=== PATIENT | male | born 1985 | race American Indian/Alaskan Native ===

== ENCOUNTER 2018-10-22 09:57 | Emergency (ER) | payer MEDICAID ==
[2018-10-22] MEDS ORDERED: ZOFRAN IV ONE (10:47)
[2018-10-22] MEDS ORDERED: BENTYL IM ONE (10:47)
[2018-10-22] MEDS ORDERED: PROTONIX IV ONE (10:47)
[2018-10-22] MEDS ORDERED: NACL 0.9% 1000 ML 1,000 ML IV ONE (10:47)
--- NOTE | 2018-10-22 10:52 | Emergency Department Report ---
ED N/V/D HPI - General Chief complaint: Nausea/Vomiting/Diarrhea Stated complaint: WEAK/DEHYDRATED Time Seen by Provider: 10/22/18 10:24 Source: patient Mode of arrival: Ambulatory Limitations: No Limitations - History of Present Illness Initial comments: Patient is a 33-year-old male presents to the emergency room with complaints of nausea, vomiting, diarrhea that began 3 days ago. He states he has associated abdominal cramping and spasms. he states it feels like a burning sensation. He states he has had these symptoms before and been seen in the emergency department for it and was diagnosed with acid reflux. He states he ran out of all of his bentyl and Protonix. He denies any urinary symptoms. He does not report any melena, hematochezia, hematemesis. He denies any allergies to medications. He endorses tobacco and marijuana use. - Related Data Previous Rx's Medication Instructions Recorded Last Taken Type Ondansetron [Zofran Odt] 4 mg PO Q8HR PRN #10 tab.rapdis 02/15/18 Unknown Rx Dicyclomine [Bentyl] 10 mg PO QID PRN #20 capsule 10/22/18 Unknown Rx Ondansetron [Zofran Odt] 4 mg PO Q8HR PRN #20 tab.rapdis 10/22/18 Unknown Rx Pantoprazole [Protonix TAB] 20 mg PO QDAY #20 tablet. 10/22/18 Unknown Rx Allergies Allergy/AdvReac Type Severity Reaction Status Date / Time No Known Allergies Allergy Unverified 02/15/18 02:22 ED Review of Systems ROS: Stated complaint: WEAK/DEHYDRATED Other details as noted in HPI Comment: All other systems reviewed and negative ED Past Medical Hx - Past Medical History Previous Medical History?: No Additional medical history: Stomach Ulcers. - Surgical History Past Surgical History?: No - Social History Smoking Status: Current Every Day Smoker Substance Use Type: Marijuana - Medications Home Medications: Home Medications Medication Instructions Recorded Confirmed Last Taken Type Ondansetron [Zofran Odt] 4 mg PO Q8HR PRN #10 tab.rapdis 02/15/18 Unknown Rx Dicyclomine [Bentyl] 10 mg PO QID PRN #20 capsule 10/22/18 Unknown Rx Ondansetron [Zofran Odt] 4 mg PO Q8HR PRN #20 tab.rapdis 10/22/18 Unknown Rx Pantoprazole [Protonix TAB] 20 mg PO QDAY #20 tablet. 10/22/18 Unknown Rx ED Physical Exam - General Limitations: No Limitations General appearance: alert, in no apparent distress - Head Head exam: Present: atraumatic, normocephalic - Eye Eye exam: Present: normal appearance - ENT ENT exam: Present: mucous membranes moist - Respiratory Respiratory exam: Present: normal lung sounds bilaterally. Absent: respiratory distress, wheezes, rales, rhonchi, stridor, chest wall tenderness, accessory muscle use, decreased breath sounds, prolonged expiratory - Cardiovascular Cardiovascular Exam: Present: regular rate, normal rhythm, normal heart sounds. Absent: systolic murmur, diastolic murmur, rubs, gallop - GI/Abdominal GI/Abdominal exam: Present: soft, normal bowel sounds. Absent: distended, tenderness, guarding, rebound, rigid - Neurological Exam Neurological exam: Present: alert, oriented X3 - Psychiatric Psychiatric exam: Present: normal affect, normal mood - Skin Skin exam: Present: warm, dry, intact ED Course Vital Signs 10/22/18 10/22/18 10/22/18 10:07 11:00 13:00 Temperature 97.9 F Pulse Rate 50 L 79 Respiratory 18 19 19 Rate Blood Pressure 141/89 Blood Pressure 132/78 [Left] O2 Sat by Pulse 100 99 99 Oximetry 10/22/18 14:11 Temperature 98.2 F Pulse Rate 82 Respiratory 16 Rate Blood Pressure Blood Pressure 122/76 [Left] O2 Sat by Pulse 100 Oximetry ED Medical Decision Making - Lab Data Result diagrams: 10/22/18 11:20 10/22/18 11:20 Lab Results 10/22/18 10/22/18 10/22/18 Range/Units 10:37 11:20 11:20 WBC 6.9 (4.5-11.0) K/mm3 RBC 6.34 H (3.65-5.03) M/mm3 Hgb 18.0 H (11.8-15.2) gm/dl Hct 52.7 H (35.5-45.6) % MCV 83 L (84-94) fl MCH 28 (28-32) pg MCHC 34 (32-34) % RDW 15.0 (13.2-15.2) % Plt Count 183 (140-440) K/mm3 Lymph % (Auto) 19.3 (13.4-35.0) % [place] % (Auto) 10.7 H (0.0-7.3) % Eos % (Auto) 0.1 (0.0-4.3) % Baso % (Auto) 0.7 (0.0-1.8) % Lymph # 1.3 (1.2-5.4) K/mm3 [place] # 0.7 (0.0-0.8) K/mm3 Eos # 0.0 (0.0-0.4) K/mm3 Baso # 0.1 (0.0-0.1) K/mm3 Seg Neutrophils % 69.2 (40.0-70.0) % Seg Neutrophils # 4.8 (1.8-7.7) K/mm3 Sodium 145 (137-145) mmol/L Potassium 4.2 (3.6-5.0) mmol/L Chloride 95.9 L (98-107) mmol/L Carbon Dioxide 31 H (22-30) mmol/L Anion Gap 22 mmol/L BUN 18 (9-20) mg/dL Creatinine 1.1 (0.8-1.5) mg/dL Estimated GFR > 60 ml/min BUN/Creatinine Ratio 16 % Glucose 133 H (75-100) mg/dL Calcium 10.7 H (8.4-10.2) mg/dL Total Bilirubin 0.40 (0.1-1.2) mg/dL AST 19 (5-40) units/L ALT 17 (7-56) units/L Alkaline Phosphatase 108 (35-129) units/L Total Protein 9.1 H (6.3-8.2) g/dL Albumin 5.2 H (3.9-5) g/dL Albumin/Globulin Ratio 1.3 % Lipase (13-60) units/L Urine Color Yellow (Yellow) Urine Turbidity Slightly-cloudy (Clear) Urine pH 5.0 (5.0-7.0) Ur Specific [place] 1.034 H (1.003-1.030) Urine Protein 100 mg/dl (Negative) mg/dL Urine Glucose (UA) Neg (Negative) mg/dL Urine Ketones 20 (Negative) mg/dL Urine Blood Mod (Negative) Urine Nitrite Neg (Negative) Urine Bilirubin Neg (Negative) Urine Urobilinogen < 2.0 (<2.0) mg/dL Ur Leukocyte Esterase Neg (Negative) Urine WBC (Auto) 6.0 (0.0-6.0) /HPF Urine RBC (Auto) 5.0 (0.0-6.0) /HPF U Epithel Cells (Auto) 1.0 (0-13.0) /HPF Urine Mucus 3+ /HPF 10/22/18 Range/Units 11:20 WBC (4.5-11.0) K/mm3 RBC (3.65-5.03) M/mm3 Hgb (11.8-15.2) gm/dl Hct (35.5-45.6) % MCV (84-94) fl MCH (28-32) pg MCHC (32-34) % RDW (13.2-15.2) % Plt Count (140-440) K/mm3 Lymph % (Auto) (13.4-35.0) % [place] % (Auto) (0.0-7.3) % Eos % (Auto) (0.0-4.3) % Baso % (Auto) (0.0-1.8) % Lymph # (1.2-5.4) K/mm3 [place] # (0.0-0.8) K/mm3 Eos # (0.0-0.4) K/mm3 Baso # (0.0-0.1) K/mm3 Seg Neutrophils % (40.0-70.0) % Seg Neutrophils # (1.8-7.7) K/mm3 Sodium (137-145) mmol/L Potassium (3.6-5.0) mmol/L Chloride (98-107) mmol/L Carbon Dioxide (22-30) mmol/L Anion Gap mmol/L BUN (9-20) mg/dL Creatinine (0.8-1.5) mg/dL Estimated GFR ml/min BUN/Creatinine Ratio % Glucose (75-100) mg/dL Calcium (8.4-10.2) mg/dL Total Bilirubin (0.1-1.2) mg/dL AST (5-40) units/L ALT (7-56) units/L Alkaline Phosphatase (35-129) units/L Total Protein (6.3-8.2) g/dL Albumin (3.9-5) g/dL Albumin/Globulin Ratio % Lipase 15 (13-60) units/L Urine Color (Yellow) Urine Turbidity (Clear) Urine pH (5.0-7.0) Ur Specific [place] (1.003-1.030) Urine Protein (Negative) mg/dL Urine Glucose (UA) (Negative) mg/dL Urine Ketones (Negative) mg/dL Urine Blood (Negative) Urine Nitrite (Negative) Urine Bilirubin (Negative) Urine Urobilinogen (<2.0) mg/dL Ur Leukocyte Esterase (Negative) Urine WBC (Auto) (0.0-6.0) /HPF Urine RBC (Auto) (0.0-6.0) /HPF U Epithel Cells (Auto) (0-13.0) /HPF Urine Mucus /HPF Vital Signs 10/22/18 10/22/18 10/22/18 10:07 11:00 13:00 Temperature 97.9 F Pulse Rate 50 L 79 Respiratory 18 19 19 Rate Blood Pressure 141/89 Blood Pressure 132/78 [Left] O2 Sat by Pulse 100 99 99 Oximetry 10/22/18 14:11 Temperature 98.2 F Pulse Rate 82 Respiratory 16 Rate Blood Pressure Blood Pressure 122/76 [Left] O2 Sat by Pulse 100 Oximetry - Radiology Data Radiology results: report reviewed Fluoro Time In Minutes: ABDOMEN 2 VIEWS INDICATION / CLINICAL INFORMATION: epigastric abd discomfort. COMPARISON: None available. FINDINGS: Nonspecific bowel gas pattern. No definite evidence of obstruction. Signer Name: Bandar Conner MD FACR Signed: 10/22/2018 12:21 PM Workstation Name: [id number] Transcribed By: MS Dictated By: Bandar Conner MD Electronically Authenticated By: Bandar Conner MD Signed Date/Time: 10/22/18 1221 - Medical Decision Making Patient is a 33-year-old male presents to the emergency room with complaints of nausea, vomiting, diarrhea that began 3 days ago. He states he has associated abdominal cramping and spasms. he states it feels like a burning sensation. He states he has had these symptoms before and been seen in the emergency department for it and was diagnosed with acid reflux. He states he ran out of all of his bentyl and Protonix. He denies any urinary symptoms. He does not report any melena, hematochezia, hematemesis. He denies any allergies to medications. He endorses tobacco and marijuana use. VSS. labs WNL. UA with no evidence of UTI. no abd tenderness on exam. XR abd: Nonspecific bowel gas pattern. No definite evidence of obstruction. pt given medications while in the ED and his sx completely improved. pt no longer experiencing N/V or burning sens ation. pt was able to tolerate PO intake. given prescriptions for zofran, bentyl, and protonix. advised pt to please take medication as prescribed. please drink plenty of water and eat a bland diet over the next few days. follow up with a GI doctor and primary care doctor in the next 2-3 days. return to the emergency room for any new or worsening symptoms or if symptoms not improving. - Differential Diagnosis PUD, gastritis, GERD, SBO, pancreatitis, cholecystitis, gastroenteritis Critical care attestation.: If time is entered above; I have spent that time in minutes in the direct care of this critically ill patient, excluding procedure time. ED Disposition Clinical Impression: Nausea vomiting and diarrhea Abdominal pain Qualifiers: Abdominal location: epigastric Qualified Code(s): R10.13 - Epigastric pain GERD (gastroesophageal reflux disease) Qualifiers: Esophagitis presence: without esophagitis Qualified Code(s): K21.9 - Gastro-esophageal reflux disease without esophagitis Disposition: DC-01 TO HOME OR SELFCARE Is pt being admited?: No Does the pt Need Aspirin: No Condition: Stable Instructions: Diet for Ulcers and Gastritis (ED), Gastroesophageal Reflux Disease (ED), Abdominal Pain (ED) Additional Instructions: please take medication as prescribed. please drink plenty of water and eat a bland diet over the next few days. follow up with a GI doctor and primary care doctor in the next 2-3 days. return to the emergency room for any new or worsening symptoms or if symptoms not improving. Prescriptions: Dicyclomine [Bentyl] 10 mg PO QID PRN #20 capsule PRN Reason: Spasms Pantoprazole [Protonix TAB] 20 mg PO QDAY #20 tablet. Ondansetron [Zofran Odt] 4 mg PO Q8HR PRN #20 tab.rapdis PRN Reason: Nausea And Vomiting Referrals: ENID WEI MD [Primary Care Provider] - 2-3 Days [facility] [Provider Group] - 2-3 Days Time of Disposition: 13:15 Print Language: SWEDISH
[2018-10-22 10:56] LABS: Bilirubin,Urine NEG (Negative); Blood,Urine MOD (Negative); Mucus,Urine 3+ /HPF; Urobilinogen,Urine < 2.0 mg/dL (<2.0)
[2018-10-22 10:59] LABS: Color,Urine Yellow (Yellow)
[2018-10-22 11:25] LABS: Basophils # (Auto) 0.1 K/mm3 (0.0-0.1); Basophils % (Auto) 0.7 % (0.0-1.8); Eosinophils % (Auto) 0.1 % (0.0-4.3); Hematocrit 52.7 % (35.5-45.6); Lymphocytes # (Auto) 1.3 K/mm3 (1.2-5.4); Lymphocytes % (Auto) 19.3 % (13.4-35.0); Mean Corpuscular HGB Conc 34 % (32-34); Mean Corpuscular Volume 83 fl (84-94); Monocytes # (Auto) 0.7 K/mm3 (0.0-0.8); Monocytes % (Auto) 10.7 % (0.0-7.3); Red Blood Count 6.34 M/mm3 (3.65-5.03)
[2018-10-22] MEDS ORDERED: WATER FOR INJ Sterile (PF) 10 ML ONE (11:35)
[2018-10-22 11:46] LABS: BUN/Creatinine Ratio 16; Blood Urea Nitrogen 18 mg/dL (9-20); Calcium 10.7 mg/dL (8.4-10.2); Hemolysis Index 11
[2018-10-22] MEDS ORDERED: BENADRYL IV ONE (12:23)
[2018-10-22] MEDS ORDERED: REGLAN IV ONE (12:23)
--- NOTE | 2018-10-22 12:26 | XRay Report ---
ABDOMEN 2 VIEWS INDICATION / CLINICAL INFORMATION: epigastric abd discomfort. COMPARISON: None available. FINDINGS: Nonspecific bowel gas pattern. No definite evidence of obstruction. Signer Name: Bandar Conner MD FACGustavo Signed: 10/22/2018 12:21 PM Workstation Name: [id number]
[2018-10-22 12:29] LABS: Alanine Aminotransferase 17 units/L (7-56); Albumin 5.2 g/dL (3.9-5)
[2018-10-22 12:57] LABS: Platelet Count 183 K/mm3 (140-440)
[2018-10-22 14:12] VITALS: BP 122/76
== END 2018-10-22 14:10 | disposition home or self-care (01) ==
LOC: ED 09:57
DX: K21.9 Gastro-esophageal reflux disease without esophagitis (principal); R11.2 Nausea with vomiting, unspecified; F17.200 Nicotine dependence, unspecified, uncomplicated; F12.10 Cannabis abuse, uncomplicated; Z87.11 Personal history of peptic ulcer disease
CPT/HCPCS: 36415; 74019; 80053; 81001; 83690; 85025; 96361; 96372; 96374; 96375; 99284; C9113; J0500; J1200; J2405; J2765; J7030